=== PATIENT | male | born 1995 | race African-American/Black ===

== ENCOUNTER 2021-09-04 19:15 | Emergency (ER) | payer SELFPAY ==
[~2021-09-04] VITALS: Ht 172.7 cm; Wt 81.6 kg
[2021-09-04] MEDS ORDERED: VIBRAMYCIN100 MG PO (20:09)
[2021-09-04] MEDS ORDERED: CEFTRIAXONE 500 MG VIAL ONE (20:10)
[2021-09-04] MEDS ORDERED: LIDOCAINE HCL 1% LOCAL INJ 20 ML VIAL ONE (20:10)
[2021-09-04] MEDS ORDERED: VALTREX500 MG PO (20:14)
[2021-09-04] MEDS ORDERED: CEFTRIAXONE 500 MG VIAL IM ONE (20:15)
== END 2021-09-04 20:20 | disposition home or self-care (01) ==
LOC: FSED 19:26
DX: A60.00 Herpesviral infection of urogenital system, unspecified (principal); R30.0 Dysuria
CPT/HCPCS: 99282; J0696; J2001